=== PATIENT | female | born 2005 | race African-American/Black ===

== ENCOUNTER 2024-02-25 14:58 | Emergency (ER) | payer OTHER, SELFPAY ==
[2024-02-25 15:05] VITALS: BP 118/66; PULSE 91; RESP 20; TEMP 36.9; O2SAT 99
--- NOTE | 2024-02-25 15:14 | ED.URI ---
HPI - URI/Sore Throat General Chief Complaint: Upper Respiratory Infection Stated Complaint: Asthma / fever Time Seen by Provider: 02/25/24 15:14 Source: patient, RN notes reviewed and old records reviewed Mode of arrival: ambulatory Limitations: no limitations History of Present Illness HPI Narrative: 18-year-old female to [facility] with complaint of nasal congestion and cough for 1 week. Patient history of asthma. Patient has attempted to treat at home with inhalers, nebulizer, Benadryl and cetirizine. Patient states that he has been at least 6 months since her last asthma exacerbation. Patient denies shortness of breath, chest pain, fever, sore throat, ear pain, productive cough , allergies. Patient able to tolerate fluids by mouth. Respirations even and nonlabored. Patient sitting comfortably in exam room in no acute distress. Related Data Home Medications Medication Instructions Recorded Confirmed albuterol sulfate 90 mcg/actuation 1 inh inhalation QID 02/25/24 02/25/24 aerosol inhaler albuterol sulfate 90 mcg/actuation inhalation 02/25/24 aerosol inhaler cetirizine 10 mg capsule (Zyrtec) 10 mg PO DAILY PRN Allergy Symptoms 02/25/24 02/25/24 citalopram 20 mg tablet mg 02/25/24 levonorgestrel-ethinyl estradiol tablet 02/25/24 0.1 mg-20 mcg tablet (Aviane) methylphenidate HCl 36 mg 36 mg PO QAM 02/25/24 02/25/24 tablet,extended release 24 hr (Concerta) pantoprazole 40 mg tablet,delayed mg PO 02/25/24 release trazodone 50 mg tablet mg 02/25/24 Allergies Allergy/AdvReac Type Severity Reaction Status Date / Time No Known Allergies Allergy Verified 02/25/24 15:13 Review of Systems Review of Systems: All systems reviewed & are unremarkable except as noted in HPI and below Constitutional: Constitutional: Reports no additional constitutional complaints Eyes: Eyes: Reports no additional eye complaints ENT: Reports as per HPI and Reports nasal congestion Cardiovascular: Cardiovascular: Reports no additional cardiovascular complaints, Denies chest pain and Denies dyspnea Respiratory: Respiratory: Reports no additional respiratory complaints, Reports cough and Denies dyspnea Musculoskeletal: Musculoskeletal: Reports no additional musculoskeletal complaints Neurologic: Reports system reviewed and no additional complaints, except as documented Psychiatric: Psychiatric: Reports no additional psychiatric complaints PMFSH Comments At the time of my signature, I reviewed and agree with the nursing past medical, surgical, social, and family history. There is no relevant family history pertinent to the patient complaint. Exam Const: General: cooperative, comfortable, no acute distress, alert, tired appearing and well nourished Nutritional Appearance: well nourished Orientation/consciousness: patient oriented x3 Limitations: no limitations HENMT: Head: normal to inspection Ears: external ears normal Face/Nose/Sinus: Normal external nose present, Normal nares present, normal facial exam, No erythema and No edema Face and sinus: normal facial exam, no erythema and no edema Mouth: Yes Normal oral and palatal mucosa present Eyes: General: appearance normal, both eyes and all related structures Neck: Neck: normal visual inspection, full ROM and no meningeal signs Lymphatic: no lymphadenopathy noted and no lymphedema noted Chest: Chest palpation & inspection: normal inspection of the chest Resp: Effort & Inspection: normal respiratory effort and able to speak in complete sentences Auscultation: wheezes scattered wheezes and throughout Cardio: Jugular venous distension: no JVD Rate: regular rate Rhythm: regular rhythm Back/Spine/Pelvis: Cervical Spine: cervical ROM normal Skin: General skin exam: normal color, no rashes or lesions noted and turgor normal Neuro: General: patient oriented x3, gait normal, moves all extremities and no meningeal signs Speech: normal speech Gait exam (
[2024-02-25] MEDS: IPRATROPIUM 0.5 MG/ALBUTEROL SULFATE 2.5 MG AMPUL.NEB 3 ML INHALATION (15:36)
== END 2024-02-25 16:12 | disposition home or self-care (01) ==
PROVIDERS: Emergency Provider Nurse Practitioner Family; PCP Internal Medicine
DX: J45.901 Unspecified asthma with (acute) exacerbation (principal); F90.9 Attention-deficit hyperactivity disorder, unspecified type
CPT/HCPCS: 99213; G0463

== ENCOUNTER 2024-04-16 17:34 | Emergency (ER) | payer OTHER, SELFPAY ==
[2024-04-16 17:43] VITALS: BP 122/72; PULSE 98; RESP 18; TEMP 36.8; O2SAT 100
[2024-04-16 17:48] VITALS: BP 122/72; PULSE 98; RESP 18; TEMP 36.8; O2SAT 100
--- NOTE | 2024-04-16 20:47 | ED.URI ---
HPI - URI/Sore Throat General Chief Complaint: Upper Respiratory Infection Stated Complaint: SOB,wheezing,cough,asthmatic Time Seen by Provider: 04/16/24 17:52 Source: patient, RN notes reviewed and old records reviewed Mode of arrival: ambulatory Limitations: no limitations History of Present Illness HPI Narrative: 18-year-old female to [facility] with complaint of congestion, wheezing, cough with green phlegm. Patient endorses history of asthma, states she has been using her inhaler and nebulizer at home. States she last used her nebulizer 2 hours prior to arrival. Related Data Home Medications Medication Instructions Recorded Confirmed albuterol sulfate 90 mcg/actuation 1 inh inhalation QID 02/25/24 02/25/24 aerosol inhaler albuterol sulfate 90 mcg/actuation inhalation 02/25/24 aerosol inhaler cetirizine 10 mg capsule (Zyrtec) 10 mg PO DAILY PRN Allergy Symptoms 02/25/24 02/25/24 citalopram 20 mg tablet mg 02/25/24 levonorgestrel-ethinyl estradiol tablet 02/25/24 0.1 mg-20 mcg tablet (Aviane) methylphenidate HCl 36 mg 36 mg PO QAM 02/25/24 02/25/24 tablet,extended release 24 hr (Concerta) pantoprazole 40 mg tablet,delayed mg PO 02/25/24 release trazodone 50 mg tablet mg 02/25/24 Allergies Allergy/AdvReac Type Severity Reaction Status Date / Time No Known Allergies Allergy Verified 04/16/24 17:47 Review of Systems Review of Systems: All systems reviewed & are unremarkable except as noted in HPI and below Constitutional: Constitutional: Reports no additional constitutional complaints Eyes: Eyes: Reports no additional eye complaints ENT: Reports as per HPI and Reports nasal congestion Cardiovascular: Cardiovascular: Reports no additional cardiovascular complaints, Denies chest pain and Denies dyspnea Respiratory: Respiratory: Reports as per HPI, Reports cough, Denies dyspnea and Reports wheezing Musculoskeletal: Musculoskeletal: Reports no additional musculoskeletal complaints Neurologic: Reports system reviewed and no additional complaints, except as documented Psychiatric: Psychiatric: Reports no additional psychiatric complaints PMFSH Comments At the time of my signature, I reviewed and agree with the nursing past medical, surgical, social, and family history. There is no relevant family history pertinent to the patient complaint. Exam Const: General: cooperative, healthy appearing, comfortable, no acute distress, alert and well nourished Nutritional Appearance: well nourished Orientation/consciousness: patient oriented x3 Limitations: no limitations HENMT: Head: normal to inspection Ears: external ears normal, Abnormal EAC present cerumen impaction on the left and EAC tenderness bilateral and TM abnormal dull bilateral, erythematous bilateral, with fluid behind the TM bilateral and with loss of landmarks bilateral Face/Nose/Sinus: Normal external nose present, Normal nares present, normal facial exam, No erythema and No edema Face and sinus: normal facial exam, no erythema and no edema Mouth: Yes Normal oral and palatal mucosa present Throat: posterior oropharynx abnormal erythema and postnasal drainage Eyes: General: appearance normal, both eyes and all related structures Neck: Neck: normal visual inspection, full ROM and no meningeal signs Lymphatic: no lymphadenopathy noted and no lymphedema noted Chest: Chest palpation & inspection: normal inspection of the chest Resp: Effort & Inspection: normal respiratory effort and able to speak in complete sentences Auscultation: clear to auscultation bilaterally Cardio: Jugular venous distension: no JVD Rate: regular rate Rhythm: regular rhythm Back/Spine/Pelvis: Cervical Spine: cervical ROM normal Skin: General skin exam: normal color, no rashes or lesions noted and turgor normal Neuro: General: patient oriented x3, gait normal, moves all extremities and no meningeal signs Speech: normal speech Gait exam (Neuro): Normal gait present Extrem: General: normal to inspection, full ROM and capillary refill normal Psych: Appearance: grossly normal and well kempt Course Course Emergency Course: Some parts of this dictation were generated by voice recognition software and may contain typographical and/or grammatical inaccuracies. Level of Care: Express Care Visit Vital Signs Vital signs: Vital Signs Temperature 36.8 C 04/16/24 17:43 Pulse Rate 98 04/16/24 17:43 Respiratory Rate 18 04/16/24 17:43 Blood Pressure 122/72 04/16/24 17:43 Pulse Oximetry 100 04/16/24 17:43 Oxygen Delivery Room Air 04/16/24 17:43 Temperature 36.8 C 04/16/24 17:48 Pulse Rate 98 04/16/24 17:48 Respiratory Rate 18 04/16/24 17:48 Blood Pressure 122/72 04/16/24 17:48 Pulse Oximetry 100 04/16/24 17:48 Oxygen Delivery Room Air 04/16/24 17:48 reviewed Procedures Ear Wax Removal Left Ear: Ear Wax Removal Date: 04/16/24 Results: Re-examined: cerumen removed completely TM Examination: TM(s) erythematous Ear Canal Exam: atraumatic Patient Tolerated Procedure: well Complications: pain Technique: ear canal curetted MDM - URI/Sore Throat MDM Narrative Medical decision making narrative: 18-year-old female to [facility] with complaint of congestion, wheezing, cough with green phlegm. Patient endorses history of asthma, states she has been using her inhaler and nebulizer at home. States she last used her nebulizer 2 hours prior to arrival. patient resting comfortably in exam room in no acute distress. Respirations even and nonlabored. Patient able to speak in complete sentences without difficulty. On exam, left EAC with impacted cerumen. Bilateral EAC tenderness. Wax removal successful with curette. Patient tolerated well with some discomfort. Bilateral TMs erythematous, dull, loss of landmarks. Posterior oropharynx erythematous with postnasal drainage. exam otherwise unremarkable. Consistent with bilateral otitis media. Patient is sitting comfortably in exam room nontoxic in appearance. Patient appropriate for outpatient treatment and follow-up. Discharge instructions reviewed with patient, as well as provided in writing per nursing staff. The instructions also include specific and strict return/GO TO THE ER as well as f/u information. All questions have been answered, and the patient deny any further questions with discharge and discharge plan. Some parts of this dictation were generated by voice recognition software and may contain typographical and/or grammatical inaccuracies. Differential Diagnosis Differential diagnosis: Likely upper respiratory infection, croup, otitis media, sinusitis, viral infection, bronchitis, influenza and pharyngitis Discharge Plan Discharge Clinical Impression: Bilateral acute otitis media, Left ear impacted cerumen Patient Disposition: Home, Self-Care Condition: Stable Instructions: Ear Infection (GEN) Additional Instructions: please finish entire course of antibiotic treatment please take the steroid in the morning -Alternate Tylenol and Motrin per package directions for fever or pain. -Antihistamine medication such as Benadryl at night and Zyrtec/Claritin/Eula during the day can help improve symptoms. -Use Flonase twice a day for 5 days then daily to help reduce the inflammation and dry up your sinuses. -You can also use Sudafed or Mucinex. Be sure to drink plenty of water with these medications at least 8 ounces with every dose and it is important to drink 8 to 10 glasses of water per day. Water is a natural decongestant -Eat and drink things that are easy to swallow, like tea or soup, or popsicles. -Oral rinses such as: Salt water gargles and/or may use topical anesthetic (eg. Chloraseptic spray) or lozenges to relieve dryness or throat pain). -Frequent hand washing or hand district adviser is one of the best ways to prevent spread of infection. -Using a vaporizer or humidifier at night will also help thin secretions and help with coughing up phlegm. -Follow up with primary care provider in 2-3 days if condition is not improving; or seek ER visit if you have trouble breathing, cannot drink enough fluids, have muffled voice, difficulty opening your mouth, or severe swelling. Prescriptions: New methylprednisolone [Medrol (Dieudonne)] 4 mg tablets,dose pack See Rx Instructions .ROUTE .COMPLEX Qty: 21 0RF Rx Instructions: per package instructions amoxicillin-pot clavulanate 875-125 mg tablet 1 tablet PO Q12H Qty: 20 0RF No Action trazodone 50 mg tablet levonorgestrel-ethinyl estrad [Aviane] 0.1-20 mg-mcg tablet citalopram 20 mg Tablet pantoprazole 40 mg tablet,delayed release (DR/EC) PO albuterol sulfate 90 mcg/actuation HFA aerosol inhaler INHALATION albuterol sulfate [ProAir HFA] 90 mcg/actuation Hfa Aerosol Inhaler 1 inh INHALATION QID methylphenidate HCl [Concerta] 36 mg Tablet Extended Release 24hr 36 mg PO QAM Zyrtec 10 mg Capsule 10 mg PO DAILY PRN (Reason: Allergy Symptoms) Follow-up/Referrals: UNKNOWN,DOCTOR [Primary Care Provider] -
== END 2024-04-16 18:40 | disposition home or self-care (01) ==
PROVIDERS: Emergency Provider Nurse Practitioner Family
DX: H66.92 Otitis media, unspecified, left ear (principal); H61.22 Impacted cerumen, left ear; J45.909 Unspecified asthma, uncomplicated; F90.9 Attention-deficit hyperactivity disorder, unspecified type; F41.9 Anxiety disorder, unspecified; F32.A Depression, unspecified
CPT/HCPCS: 69210; 99213; G0463